=== PATIENT | male | born 1940 | race Caucasian/White ===

== ENCOUNTER 2020-11-08 14:45 | Emergency (ER) | payer OTHER ==
[~2020-11-08] VITALS: Ht 182.9 cm; Wt 78.0 kg
[2020-11-08] MEDS ORDERED: IOHEXOL 300 MG/ML 75 ML VIAL. IV ONE (16:00)
[2020-11-08 16:01] LABS: BASO % 1 % (0-3); EOS # 0.1 x10^3/uL (0.0-0.7); EOS % 1 % (0-3); HEMATOCRIT 41.2 % (39.0-53.0); HEMOGLOBIN 14.1 g/dL (13.0-17.5); LYMPH # 0.3 x10^3/uL (1.0-4.8); LYMPH % 5 % (24-48); MEAN CORPUSCULAR HEMOGLOBIN 32 pg (25-35); MEAN CORPUSCULAR HGB CONC 34 g/dL (31-37); MEAN CORPUSCULAR VOLUME 95 fL (79-100); MONO # 0.3 x10^3/uL (0.0-1.1); MONO % 5 % (0-9); NEUT # 5.6 x10^3uL (1.8-7.7); NEUT % 88 % (31-73); PLATELET COUNT 150 x10^3/uL (140-400); RED BLOOD COUNT 4.34 x10^6/uL (4.30-5.70); RED CELL DISTRIBUTION WIDTH 13.9 % (11.5-14.5); WHITE BLOOD COUNT 6.4 x10^3/uL (4.0-11.0)
[2020-11-08 16:21] LABS: CALCIUM 8.5 mg/dL (8.5-10.1); CREATININE 1.1 mg/dL (0.7-1.3); GFR 64.1; POTASSIUM 4.2 mmol/L (3.5-5.1)
[2020-11-08 16:27] LABS: ALBUMIN 3.7 g/dL (3.4-5.0); ALBUMIN/GLOBULIN RATIO 1.2 (1.0-1.7); TOTAL BILIRUBIN 0.5 mg/dL (0.2-1.0); TOTAL PROTEIN 6.8 g/dL (6.4-8.2)
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
[2020-11-08] MEDS ORDERED: HYDROmorphone PF 1 MG/ML DISP.SYRIN IVP ONE ×2 (17:00→17:30)
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
[2020-11-08] MEDS ORDERED: KETOROLAC 15 MG/ML VIAL. IVP ONE (17:30)
[2020-11-08] MEDS ORDERED: IBUP400T18 PO (17:37)
[2020-11-08] MEDS ORDERED: HYDR-3165 PO (17:37)
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
[2020-11-08 18:00] VITALS: BP 186/87
== END 2020-11-08 18:15 | disposition home or self-care (01) ==
LOC: ER 14:45
DX: S42.002A Fracture of unspecified part of left clavicle, initial encounter for closed fracture (principal); S32.010A Wedge compression fracture of first lumbar vertebra, initial encounter for closed fracture; S51.801A Unspecified open wound of right forearm, initial encounter; V43.52XA Car driver injured in collision with other type car in traffic accident, initial encounter; Y93.I9 Activity, other involving external motion; Y92.89 Other specified places as the place of occurrence of the external cause; Y99.8 Other external cause status
CPT/HCPCS: 12002; 36415; 70450; 70486; 71260; 72125; 72131; 73000; 74177; 80053; 85025; 85610; 85730; 96374; 96375; 96376; 99285; J1170; J1885; Q9967

== ENCOUNTER 2020-12-03 14:36 | Emergency (ER) | payer OTHER ==
[~2020-12-03] VITALS: Ht 182.9 cm; Wt 78.0 kg
[~2020-12-03 14:36] MED LIST: HYDR-3165 PO; IBUP400T18 PO
[2020-12-03] MEDS ORDERED: HYDROmorphone PF 1 MG/ML DISP.SYRIN IM ONE (16:00)
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
[2020-12-03] MEDS ORDERED: POLYETHYLENE GLYCOL 3350 17 GM PACKET. PO ONE (17:45)
[2020-12-03] MEDS ORDERED: IBUPROFEN 400 MG TABLET. PO ONE (17:45)
[2020-12-03] MEDS ORDERED: DOCUSATE SODIUM 100 MG CAPSULE PO ONE (17:45)
[2020-12-03 18:22] LABS: BASO % 1 % (0-3); EOS # 0.2 x10^3/uL (0.0-0.7); EOS % 4 % (0-3); HEMATOCRIT 40.1 % (39.0-53.0); HEMOGLOBIN 13.4 g/dL (13.0-17.5); LYMPH # 0.5 x10^3/uL (1.0-4.8); LYMPH % 10 % (24-48); MEAN CORPUSCULAR HEMOGLOBIN 32 pg (25-35); MEAN CORPUSCULAR HGB CONC 33 g/dL (31-37); MEAN CORPUSCULAR VOLUME 97 fL (79-100); MONO # 0.5 x10^3/uL (0.0-1.1); MONO % 9 % (0-9); NEUT # 3.7 x10^3uL (1.8-7.7); NEUT % 76 % (31-73); PLATELET COUNT 189 x10^3/uL (140-400); RED BLOOD COUNT 4.14 x10^6/uL (4.30-5.70); RED CELL DISTRIBUTION WIDTH 14.2 % (11.5-14.5)
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
[2020-12-03 18:42] LABS: CALCIUM 8.6 mg/dL (8.5-10.1); GFR 71.5; POTASSIUM 4.1 mmol/L (3.5-5.1)
[2020-12-03 18:48] LABS: ALBUMIN 3.6 g/dL (3.4-5.0); ALBUMIN/GLOBULIN RATIO 1.2 (1.0-1.7); TOTAL BILIRUBIN 0.5 mg/dL (0.2-1.0); TOTAL PROTEIN 6.5 g/dL (6.4-8.2)
[2020-12-03 19:03] VITALS: BP 148/67
== END 2020-12-03 19:43 | disposition short-term general hospital (02) ==
LOC: ER 14:36
DX: S32.029G Unspecified fracture of second lumbar vertebra, subsequent encounter for fracture with delayed healing (principal); S32.019G Unspecified fracture of first lumbar vertebra, subsequent encounter for fracture with delayed healing; K59.00 Constipation, unspecified; K21.9 Gastro-esophageal reflux disease without esophagitis; I10 Essential (primary) hypertension; X58.XXXD Exposure to other specified factors, subsequent encounter
CPT/HCPCS: 36415; 72131; 74018; 80053; 85025; 96372; 99285; J1170